=== PATIENT | male | born 1980 | race Caucasian/White ===

== ENCOUNTER → 2019-10-16 | Outpatient (CLI) | payer BC | END | disposition home or self-care (01) | LOC: PLD 11:04 → LAB SHORT 11:04 | DX: D22.4 Melanocytic nevi of scalp and neck (principal); D22.5 Melanocytic nevi of trunk | CPT/HCPCS: 88305 ==

== ENCOUNTER → 2019-11-20 | Outpatient (CLI) | payer BC | END | disposition home or self-care (01) | LOC: PLD 08:13 → LAB SHORT 08:13 | DX: D22.5 Melanocytic nevi of trunk (principal) | CPT/HCPCS: 88305 ==

== ENCOUNTER → 2020-02-14 | Outpatient (CLI) | payer BC ==
[2020-02-14 15:41] LABS: Source, Urine Clean Catch
[2020-02-14 16:47] LABS: Bilirubin, Urine Neg (Neg); Blood, Urine Neg (Neg); Glucose Qualitative, Urine Neg (Neg); Ketones, Urine Neg (Neg); Leukocyte Esterase, Urine Neg (Neg); Nitrite, Urine Neg (Neg); Protein, Urine Neg (Neg); Specific Gravity, Urine 1.025 (1.003-1.022); Urobilinogen, Urine NORM (Normal)
[2020-02-14 17:06] LABS: Appearance, Urine Clear (Clear); Color, Urine Yellow (P-Yellow)
[2020-02-14 17:15] LABS: Bacteria Rare /hpf; Mucus Light (0-Heavy); Red Blood Cells, Urine Not Seen /hpf (0-2); Squamous Epithelial Cells Rare /hpf (Few); White Blood Cells, Urine Rare /hpf (0-5)
== END | disposition home or self-care (01) ==
LOC: LAB SHORT 15:37 → OLS 15:37
PROVIDERS: Family Medicine
DX: N28.9 Disorder of kidney and ureter, unspecified (principal)
CPT/HCPCS: 81001; 81003

== ENCOUNTER 2021-03-23 13:38 | Day surgery (SDC) | payer BC ==
[~2021-03-23] VITALS: Ht 182.9 cm; Wt 88.5 kg
[2021-03-23] MEDS ORDERED: SERT25 (13:51)
[2021-03-23] MEDS ORDERED: OMEP20ER (13:51)
== END 2021-03-23 14:53 | disposition home or self-care (01) ==
LOC: ORSCSDS 13:38
PROVIDERS: Student in an Organized Health Care Education/Training Program
PROC: 0DB58ZX Excision of Esophagus, Via Natural or Artificial Opening Endoscopic, Diagnostic (ICD-10-PCS; principal; 2021-03-23 15:00)
PROC: 0DB18ZX Excision of Upper Esophagus, Via Natural or Artificial Opening Endoscopic, Diagnostic (ICD-10-PCS; principal; 2021-03-23 15:00)
DX: R13.10 Dysphagia, unspecified (principal); R12 Heartburn; H50.40 Unspecified heterotropia; F41.9 Anxiety disorder, unspecified; F17.210 Nicotine dependence, cigarettes, uncomplicated; Z79.899 Other long term (current) drug therapy
CPT/HCPCS: 88305; J2250; J2704; J7120

== ENCOUNTER → 2021-09-14 | Outpatient (CLI) | payer BC ==
[~2021-09-14] MED LIST: OMEP20ER; SERT25
== END | disposition home or self-care (01) ==
LOC: LAB 11:54 → LAB SHORT 11:54
DX: M25.541 Pain in joints of right hand (principal)
CPT/HCPCS: 84550

== ENCOUNTER → 2022-02-07 | Outpatient (CLI) | payer BC | END | disposition home or self-care (01) | LOC: LAB SHORT 11:13 → LAB 11:13 | DX: D03.4 Melanoma in situ of scalp and neck (principal) | CPT/HCPCS: 88305 ==

== ENCOUNTER → 2022-05-24 | Outpatient (CLI) | payer BC | END | disposition home or self-care (01) | LOC: LAB 11:21 → LAB SHORT 11:21 → PLD 11:21 | DX: D22.5 Melanocytic nevi of trunk (principal) | CPT/HCPCS: 88305 ==

== ENCOUNTER 2023-10-11 12:29 | Emergency (ER) | payer OTHER ==
[~2023-10-11] VITALS: Ht 182.9 cm; Wt 92.5 kg
[2023-10-11 12:50] VITALS: BP 123/95
== END 2023-10-11 14:41 | disposition home or self-care (01) ==
LOC: ER 12:29
DX: M79.652 Pain in left thigh (principal); R22.42 Localized swelling, mass and lump, left lower limb; F17.200 Nicotine dependence, unspecified, uncomplicated; Z79.899 Other long term (current) drug therapy
CPT/HCPCS: 93971; 99283-25

== ENCOUNTER → 2023-11-08 | Outpatient (CLI) | payer OTHER ==
[2023-11-08 11:47] LABS: Microalbumin, Urine Quant. 5.45 mg/L (0.000-20.000); Protein, Urine Quantitative 9.6 mg/dL (0.0-11.9)
== END | disposition home or self-care (01) ==
LOC: LAB 08:00 → LAB SHORT 08:00 → LAB FUT 11-03 08:15
PROVIDERS: Internal Medicine
DX: N18.2 Chronic kidney disease, stage 2 (mild) (principal); R79.89 Other specified abnormal findings of blood chemistry
CPT/HCPCS: 81050; 82043; 82570; 84156